=== PATIENT | female | born 1990 | race Caucasian/White ===

== ENCOUNTER 2022-05-15 08:32 | Emergency (ER) | payer SELFPAY ==
[2022-05-15 09:45] LABS: SARS-CoV-2 NAA Rapid Test Not Detected (NotDetected)
[2022-05-15] MEDS ORDERED: Dexamethasone 4 MG TAB ONE (10:09)
== END 2022-05-15 10:20 | disposition home or self-care (01) ==
LOC: CSHERS 08:32
DX: B34.9 Viral infection, unspecified (principal); Z20.822 Contact with and (suspected) exposure to COVID-19
CPT/HCPCS: 99283; J8540

== ENCOUNTER 2022-11-12 11:20 | Emergency (ER) | payer SELFPAY | END 2022-11-12 14:02 | disposition left against medical advice (07) | LOC: CSHERS 11:20 | DX: Z53.21 Procedure and treatment not carried out due to patient leaving prior to being seen by health care provider (principal) | CPT/HCPCS: 71045; 87081; 87430 ==